=== PATIENT | male | born 1950 ===

== ENCOUNTER 2021-11-01 18:31 | Inpatient (IN) | payer MEDICARE, OTHER ==
[~2021-11-01] VITALS: Ht 182.9 cm; Wt 113.4 kg
[2021-11-01 19:15] LABS: PCO2 Arterial 67.6 mmHg (35-45); PO2 Arterial 122 mmHg (80-100); pH Blood Arterial 7.32 (7.35-7.45)
--- NOTE | 2021-11-01 19:36 | NUR ---
DIRECT ADMIT TO ICU: REPORT RECEIVED FROM [facility] RN WHO STS THAT PT HAS LEFT THEIR FACILITY AT APPROX 1640. REPORT ALSO RECEIVED FROM EMS WHILE IN ROUTE & AGAIN AT BEDSIDE ON ARRIVAL AT APPPROX 1805. ON ARRIVAL, THE PT IS SEDATED W/ A KETAMINE DRIP & HAS RECEIVED ADDITIONAL ROCURONIUM/ VERSED IVPs WHILE IN ROUTE FOR SEDATION/ VENT COMPLIANCE. LS COARSE IN UPPER LOBES, DIM IN BASES. PT PLACED ON VENT W/ SETTINGS: AC/VC 14/420/5/50% W/ O2 SATS > 95%. MONITOR SHOWS SR W/ HR 70s, BP STABLE W/ SBP 100-110s. OGT IN PLACE, ATTACHED TO LIS W/ CLEAR-BROWN OUTPUT NOTED. 16FR LUCIO W/ [address] ON ARRIVAL, NURSING STAFF WILL CHANGE LUCIO & SEND UA TO LAB. SKIN OVERALL FRAGILE, LARGE AREA OF BRUISING/ DISCOLORATION NOTED TO PT's COCCYX IS BLANCHABLE, DARK PURPLE IN COLOR. NURSING STAFF TO TAKE PHOTOS & PLACE PROPHYLACTIC DRESSING TO SITE. SCRATCHES/ ABRASIONS NOTED TO OUTER ASPECT OF PT's LLE. PAPERWORK HAS BEEN SENT FROM [facility] W/ EMS PROVIDERS & FAXED FROM [facility] WHERE PT IS A PERMANENT RESIDENT. ADMISSION TO BE COMPLETED W/ THIS INFORMATION. PT HAS NO LISTED NOK. REPORT GIVEN TO KYM Nichols RN TO ASSUME CARE.
--- NOTE | 2021-11-01 19:48 | NUR ---
ASSUMED CARE REPORT RECEIVED FROM ROLANDO HOPPER. PATIENT LYING IN BED INTUBATED AND SEDATED ON PROPOFOL @ 20MCG/KG/MIN. OPENS EYES OCCASSIONALLY. VENT SETTINGS AC/VC 14/420/5/50% WITH SPO2 99%. ETT 8.0 24 CM @ LIP. PATIENT TOLERATING VENT WELL. OGT TO LOW INTERMITTENT SUCTION WITH YELLOW OUTPUT. LUCIO IN PLACE FROM [facility] DRAINING LIGHT YELLOW CLEAR URINE TO GRAVITY. PATIENT HAS 20G TO LT AC AND 22G TO LT HAND THAT FLUSHES AND PULLS BLOOD, 20 G TO RT FA INF PROPOFOL. UPON ASSUMING CARE, RT ENTERED ROOM WITH ABG RESULTS-SEE LAB RESULTS FOR THAT INFORMATION- AND ADJUSTED VENT SETTINGS TO 14/450/5/40% W/ SPO2 @ 97%. MONITOR SHOWS NSR WITH RATE 72, BP 104/60 MAP 73. BELONGINGS PLACED IN PATIENT BAGS AND IN TOP OPEN CUPBOARD IN ROOM.
[2021-11-01 19:53] LABS: Influenza A, PCR NEGATIVE (NEGATIVE); Influenza B, PCR NEGATIVE (NEGATIVE); Resp Syncytial Virus, PCR NEGATIVE (NEGATIVE); SARS-Cov-2 (COVID-19) PCR, MMC NEGATIVE (NEGATIVE)
[2021-11-01 21:25] LABS: Source, Urine Foley catheter
[2021-11-01 21:31] LABS: Appearance, Urine Clear (Clear); Bilirubin, Urine Neg (Neg); Blood, Urine 3+ (Neg); Color, Urine Yellow (P-Yellow); Glucose Qualitative, Urine 4+ (Neg); Ketones, Urine Neg (Neg); Leukocyte Esterase, Urine Neg (Neg); Nitrite, Urine Neg (Neg); Protein, Urine 4+ (Neg); Urobilinogen, Urine NORM (Normal)
[2021-11-01] MEDS ORDERED: ANORO ELLIPTA1 EACH INH (22:03)
[2021-11-01] MEDS ORDERED: Cymbalta20 MG PO (22:04)
[2021-11-01] MEDS ORDERED: METO100ER PO (22:05)
[2021-11-01 22:08] LABS: Bacteria Few /hpf; Squamous Epithelial Cells Rare /hpf (Few); White Blood Cells, Urine 0-2 /hpf (0-5)
[2021-11-01] MEDS ORDERED: SENN187 PO (22:08)
[2021-11-01] MEDS ORDERED: ASCO500 PO (22:08)
[2021-11-01 22:09] LABS: Hyaline Casts 0-2 /lpf (0-2)
[2021-11-01] MEDS ORDERED: THERA-D2000 UNIT PO (22:09)
[2021-11-01] MEDS ORDERED: FURO80 PO (22:10)
[2021-11-01] MEDS ORDERED: ELIQUIS5 M2 PO (22:10)
[2021-11-01] MEDS ORDERED: DILT60ER PO (22:12)
[2021-11-01] MEDS ORDERED: Acetaminophen650 M1 PO (22:13)
[2021-11-01] MEDS ORDERED: MELA3 PO (22:13)
[2021-11-01] MEDS ORDERED: TRAZ50 PO (22:13)
[2021-11-01] MEDS ORDERED: PRED20 PO (22:15)
[2021-11-01] MEDS ORDERED: NOVOLOG FL100 UNIT/2 SC (22:35)
[2021-11-01] MEDS ORDERED: LEVEMIR100 UNIT/1 SC (22:41)
[2021-11-01] MEDS ORDERED: BISA10S PR (22:45)
[2021-11-01] MEDS ORDERED: MIRALAX17 GM PO (22:45)
[2021-11-01] MEDS ORDERED: COMBIVENT RESPIM4 G1 INH (22:47)
[2021-11-01] MEDS ORDERED: Q-Tussin100 MG/5 M PO (22:54)
[2021-11-01] MEDS ORDERED: Triamcinolone A15 G3 TOP (22:56)
[2021-11-01] MEDS ORDERED: DICLOFENAC SOD100 GM TOP (22:58)
[2021-11-02 03:33] LABS: BASOPHILS ABSOLUTE AUTO 0.01 K/mm3 (0.00-0.23); BASOPHILS PERCENT AUTO 0 % (0-2); EOSINOPHILS PERCENT AUTO 0 % (0-6); Hematocrit 39.9 % (37.0-53.0); Mean Corpuscular HGB 31.3 pg (26.0-34.0); Mean Corpuscular HGB Conc 32.6 g/dL (31.5-36.5); Mean Corpuscular Volume 96 fL (80-100); Mean Platelet Volume 9.5 fL (9.1-12.4); Platelet Count 180 K/mm3 (150-400); RDW Coefficient Variation 12.9 % (11.7-14.2); RDW Standard Deviation 45.1 fL (35.1-46.3); Red Blood Cell Count 4.16 M/mm3 (4.30-5.90); White Blood Cell Count 10.54 K/mm3 (4.00-11.30)
[2021-11-02 03:37] LABS: IMMATURE GRAN ABSOLUTE AUTO 0.03 K/mm3 (0.00-0.10); IMMATURE GRAN PERCENT AUTO 0 % (0-1); LYMPHOCYTES ABSOLUTE AUTO 0.81 K/mm3 (0.84-5.20); LYMPHOCYTES PERCENT AUTO 8 % (21-46); MONOCYTES ABSOLUTE AUTO 0.09 K/mm3 (0.16-1.47); MONOCYTES PERCENT AUTO 1 % (4-13); NEUTROPHILS PERCENT AUTO 91 % (41-73)
[2021-11-02 03:55] LABS: Bun/Creatinine Ratio 12.3 (12.0-20.0); Calcium, Blood 8.5 mg/dL (8.5-10.1); Creatinine, Blood 2.84 mg/dL (0.60-1.20); Magnesium, Blood 2.6 mg/dL (1.6-2.4); Phosphorus, Blood 1.9 mg/dL (2.5-4.9); Potassium, Blood 4.1 mmol/L (3.5-5.5)
--- NOTE | 2021-11-02 07:23 | NUR ---
SHIFT SUMMARY PATIENT REMAINED INTUBATED AND SEDATED T/O SHIFT. PROPOFOL INCREASED TO 40MCG/KG/MIN WITH PATIENT STILL ABLE TO FOLLOW COMMANDS AND AROUSABLE. PATIENT DID NOT TOLERATE TURNS WELL-EXPERIENCED COUGHING FITS WITH SEVERE TREMORS EACH TIME, BUT QUICKLY RECOVERED. LUNG SOUNDS REMAINED FINE AND VENT SETTINGS REMAINED AT 14/420/5/40% WITH SPO2 GREATER THAN 90%. OGT TO LOW INT SUCTION AFTER BEING PLACED ON REGULAR SUCTION FOR APPROXIMATELY 4 HOURS. OGT HAD TOTAL OF 700ML OF OUTPUT. LUCIO PATENT AND DRAINED 325ML YELLOW CLEAR URINE TO GRAVITY. NO BM DURING SHIFT. PICTURES TAKEN OF BUTTOCK DISCOLORATION AND PLACED IN CHART. PHOS WAS LOW THIS AM AT 1.9-NA PHOS 20MM IV X [address] FLOYD. PATIENT REQUIRED HUMULIN COVERAGE OF 10 UNITS, 12 UNITS, AND 12 UNITS. LONG ACTING LANTUS STARTED DURING SHIFT. NO OTHER MAJOR CHANGES DURING SHIFT. REPORT GIVEN TO WARD MARSHALL.
--- NOTE | 2021-11-02 08:00 | NUR ---
ASSUMED CARE: REPORT RECEIVED FROM KYM Nichols RN. ASSUMED CARE OF THIS PT AT APPROX 0700. ON ASSESSMENT, THE PT IS RESTING QUIETLY & SEDATED W/ PROPOFOL AT 40 MCG/KG/MIN. HE AWAKENS EASILY TO VERBAL STIMULUS, IS ABLE TO FOLLOW DIRECTIONS & ANSWER YES/ NO QUESTIONS BY NODDING HEAD. LS ARE COARSE T/O, PT HAVING MOD AMNTS THICK WHITE SPUTUM SUCTIONED THROUGH ETT. VENT SETTINGS: SPONTANEOUS W/ PS 10, PEEP 5 & 40% FIO2 W/ O2 SATS > 95% ON AVG. MONITOR SHOWS ST W/ HR 100s, BP STABLE. OGT IN PLACE TO LIS, OKAY TO GIVE PER TUBE MEDS & CLAMP OGT FOR 30-60 MINS AFTER, PER PROVIDER. LUCIO PATENT/ DRAINING YELLOW URINE. SKINC CONDITION OVERALL FRAGILE W/ LARGE AREA OF PURPLE DISCOLORATION TO COCCYX/ BUTTOCKS THAT IS BLANCHABLE & VARIOUS AREAS OF SCATTERED ABRASION/ REDNESS. Q2H REPOSITIONING TO MAINTAIN SKIN INTEGRITY. WILL CONTINUE TO MONITOR & UPDATE NEEDED.
--- NOTE | 2021-11-02 08:40 | NUR ---
DR STILES: PROVIDER AT BEDSIDE THIS AM TO COLE PT. DISCUSSED PT's CONTINUED ELEVATED CBG READINGS W/ NO ADDITIONAL LONG-ACTING COVERAGE. ORDERS PLACED FOR INSULIN GLARGINE BID W/ FIRST DOSE THIS AM.
--- NOTE | 2021-11-02 10:00 | NUR ---
Nathan FOX & TE / SPONTANEOUS BREATHING TRIAL: PROVIDERS AT BEDSIDE TO EVAL PT THIS AM. THE PT HAS BEEN ON SPONTANEOUS W/ PS 10, PEEP 5 & 40% FIO2 SINCE APPROX 0645 THIS AM. HE HAS TOLERATED THIS WELL W/ ADEQUATE TVs & RR 16-25. DURING THIS TIME HE HAS REMAINED ON 40 MCG/KG/MIN OF PROPOFOL & AWAKENS EASILY TO VERBAL STIMULUS, FOLLOWS DIRECTIONS & NODS HEAD YES/NO TO ANSWER QUESTIONS. DR FOX HAS NO PLANS TO EXTUBATE THIS PT TODAY & STS TO LET HIM REMAIN ON SPONTANEOUS FOR LONG TOLERATED BEFORE RETURNING TO PRIOR VENT SETTINGS. AT APPROX 1000, PT's RR INCREASED TO 25-26 & TVs DECREASED TO < 360. YAHAIRA Nguyễn, RT, HAS PLACED PT BACK TO PRIOR AC/VC SETTINGS: 14/420/5/40% & THE PT IS TOLERATING THIS WELL.
--- NOTE | 2021-11-02 12:31 | NUR ---
TUBE FEEDING: TUBE FEEDS INITIATED AT APPROX 1215 AT GOAL RATE OF 25 ML/HR W/ 30 ML H2O FLUSH Q4H, PER ORDERS.
--- NOTE | 2021-11-02 15:34 | NUR ---
UPDATE: DISCUSSED PT's POOR URINE OUTPUT & CONTINUED COARSE LS W/ PROVIDER. RECONCILLED MEDICATIONS FROM PT's SNF SHOW THAT HE GENERALLY TAKES [address] FOX IS HESITANT TO DIURESE THE PT AT THIS TIME & STS WE WILL CONTINUE TO MONITOR URINE OUTPUT THROUGH THE NIGHT WE HAVE INITIATED TUBE FEEDINGS THIS AFTERNOON & OUTPUT MAY INCREASE R/T THIS.
--- NOTE | 2021-11-02 17:43 | NUR ---
SHIFT SUMMARY: NO ACUTE CHANGES SINCE PRIOR UPDATES. PT REMAINS SEDATED W/ PROPOFOL, PRN FENTANYL GIVEN PER EMAR FOR SEDATION ADJUNCT. LS COARSE T/O W/ SMALL AMNTS OF THICK WHITE SECRETIONS SUCTIONED THROUGH ETT. VENT SETTINGS: AC/VC 14/450/5/40% FIO2 W/ O2 SATS > 95%. MONITOR SHOWS SR-ST W/ HR 80-100s, BP STABLE. OGT IN PLACE W/ TUBE FEEDS INFUSING AT GOAL RATE, LOW RESIDUALS. LUCIO PATENT/ DRAINING SMALL AMNT OF DARK YELLOW URINE. SKIN CONDITION OVERALL FRAGILE, UNCHANGED FROM AM ASSESSMENT. Q2H REPOSITIONING TO MAINTAIN SKIN INTEGRITY. WILL CONTINUE TO MONITOR & REPORT OFF TO ONCOMING RN.
--- NOTE | 2021-11-02 19:00 | NUR ---
ASSUMED CARE ASSUMED CARE OF PATIENT. REMAINS INTUBATED- AC 14, TV 450, PEEP 5, FIO2 40%. RR 19-20. SEDATED WITH PROPOFOL AT 50MCG/KG/MIN. OPENS EYES TO VERBAL STIMULI. FOLLOWS SOME SIMPLE COMMANDS. MOVES ALL EXTREMITIES WEAKLY. BILATERAL SOFT WRIST RESTRAINTS IN PLACE TO PREVENT SELF-EXTUBATION. MONITOR SHOWS SR-ST, RATE 90s-100s. BP STABLE. OG WITH VITAL HIGH PROTEIN INFUSING AT GOAL RATE OF 25CC/HR. LUCIO PATENT AND DRAINING TO GRAVITY- SCANT YELLOW URINE NOTED AT THIS TIME. SEE SHIFT ASSESSMENT FOR FULL ASSESSMENT.
[2021-11-03 03:44] LABS: BASOPHILS ABSOLUTE AUTO 0.01 K/mm3 (0.00-0.23); BASOPHILS PERCENT AUTO 0 % (0-2); EOSINOPHILS PERCENT AUTO 0 % (0-6); Hematocrit 37.4 % (37.0-53.0); Hemoglobin 12.4 g/dL (13.5-17.5); IMMATURE GRAN PERCENT AUTO 1 % (0-1); LYMPHOCYTES ABSOLUTE AUTO 0.69 K/mm3 (0.84-5.20); LYMPHOCYTES PERCENT AUTO 4 % (21-46); MONOCYTES ABSOLUTE AUTO 0.32 K/mm3 (0.16-1.47); MONOCYTES PERCENT AUTO 2 % (4-13); Mean Corpuscular HGB 31.7 pg (26.0-34.0); Mean Corpuscular HGB Conc 33.2 g/dL (31.5-36.5); Mean Corpuscular Volume 96 fL (80-100); Mean Platelet Volume 9.9 fL (9.1-12.4); NEUTROPHILS ABSOLUTE AUTO 15.29 K/mm3 (1.96-9.15); NEUTROPHILS PERCENT AUTO 93 % (41-73); Platelet Count 184 K/mm3 (150-400); RDW Coefficient Variation 12.9 % (11.7-14.2); RDW Standard Deviation 44.9 fL (35.1-46.3); Red Blood Cell Count 3.91 M/mm3 (4.30-5.90); White Blood Cell Count 16.41 K/mm3 (4.00-11.30)
[2021-11-03 04:19] LABS: Albumin, Blood 2.8 g/dL (3.4-5.0); Anion Gap 10 mmol/L (6-16); Blood Urea Nitrogen 62 mg/dL (8-24); Bun/Creatinine Ratio 16.1 (12.0-20.0); CO2, Blood 34 mmol/L (21-32); Calcium, Blood 8.4 mg/dL (8.5-10.1); Chloride, Blood 88 mmol/L (98-108); Creatinine, Blood 3.84 mg/dL (0.60-1.20); Glomerular Filtration Rate 16 (60-); Glucose, Blood 480 mg/dL (70-99); Magnesium, Blood 2.7 mg/dL (1.6-2.4); Phosphorus, Blood 3.9 mg/dL (2.5-4.9); Potassium, Blood 3.9 mmol/L (3.5-5.5); Sodium, Blood 132 mmol/L (136-145)
--- NOTE | 2021-11-03 05:45 | NUR ---
HYPERGLYCEMIA DR. FOX NOTIFIED OF CONTINUED CBGs >400. NEW ORDERS RECEIVED TO CHANGE INSULIN COVERAGE TO Q4H.
--- NOTE | 2021-11-03 06:15 | NUR ---
SHIFT SUMMARY NO ACUTE CHANGES DURING NOC. REMAINS INTUBATED- AC 14, TV 450, PEEP 5, FIO2 NOW 30%. RR 14-20s. ATTEMPTED SBT THIS AM- SEE RT DOCUMENTATION. SEDATED WITH PROPOFOL BETWEEN 15-50MCG/KG/MIN. PT OPENS EYES TO VERBAL STIMULI AND FOLLOWS SIMPLE COMMANDS. NODS HEAD YES/NO APPROPRIATELY. MOVES ALL EXTREMITIES WEAKLY. OCCASIONAL STIFFENING OF ALL EXTREMITIES WITH STIMULATION/AGITATION. MEDICATED WITH FENTANYL 50MCG IV X 2 DOSES FOR DISCOMFORT/SEDATION ADJUNCT. OG WITH VHP AT GOAL RATE OF 25CC/HR. RESIDUALS 20-100CC. LUCIO PATENT AND DRAINING TO GRAVITY- TOTAL OF 400CC THIS SHIFT. CBGs CONSISTENTLY >400. DR. FOX IS AWARE AND PLAN IS TO CHECK CBGs Q4H NOW WITH HIGH SLIDING SCALE REGULAR INSULIN. WILL REPORT TO ONCOMING RN WHEN AVAILABLE.
--- NOTE | 2021-11-03 10:05 | NUR ---
ASSUMED CARE OF PT @0700, REPORT RCV'D FROM ROLANDO DEVRIES. PT INTUBATED AND SEDATED. VENT SETTINGS AC 14/420/5/30%. PROPOFOL @ 50 MCG/KG/MIN. PT OPENS EYES TO VERBAL STIMULI, FOLLOWS COMMANDS TO SQUEEZE HANDS BILATERALLY, MOVES ALL EXTREMETIES. PT PLACED ON PRESSURE SUPPORT THIS AM @0900, PROPOFOL PLACED ON STANDBY. VHP @ 25 ML/HR GOAL. LUCIO PATENT AND DRAINING TO TO GRAVITY. VSS. SEE FULL SHIFT ASSESSMENT.
--- NOTE | 2021-11-03 12:00 | NUR ---
PT EXTUBATED TO BIPAP @1135. BIPAP SETTINGS /, 30%. SATS>90%, PT WHEEZY THROUGHOUT. PT ALERT AND ORIENTED X4, FOLLOWS COMMANDS. VSS. DENIES NEEDS AT THIS TIME.
--- NOTE | 2021-11-03 17:06 | NUR ---
SHIFT SUMMARY PT REMAINS ALERT AND ORIENTED, PLEASANT AND COOPERATIVE WITH CARE. INSPIRATORY/EXPIRATORY WHEEZES T/O, PT STATES NORMAL. SATS>90% ON BIPAP 12/6, 30%, TOLERATES NC 3-4L FOR SHORT PERIODS OF TIME. OCCASIONAL NON-PRODUCTIVE DRY COUGH. BLOOD SUGARS IMPROVING THIS AFTERNOON. PT ABLE TO EAT/DRINK WITHOUT DIFFICULTY. 1200 ML URINARY OUTPUT. VSS T/O SHIFT. WILL REPORT TO ONCOMING NURSE.
--- NOTE | 2021-11-03 19:10 | NUR ---
Assumed care. Report received from roxana MARSHALL. Pt resting in bed at this time, alert and oriented. Bipap removed for pt relief, 3 L/min 02 via NC put on pt. Pt has IV access in R/arm, L/arm x2. Sams catheter in place, draining to gravity. No acute needs at this time, call light within reach. Will continue to monitor.
[2021-11-04 03:34] LABS: BASOPHILS ABSOLUTE AUTO 0.01 K/mm3 (0.00-0.23); BASOPHILS PERCENT AUTO 0 % (0-2); EOSINOPHILS PERCENT AUTO 0 % (0-6); Hematocrit 36.8 % (37.0-53.0); Hemoglobin 12.3 g/dL (13.5-17.5); IMMATURE GRAN ABSOLUTE AUTO 0.04 K/mm3 (0.00-0.10); IMMATURE GRAN PERCENT AUTO 0 % (0-1); LYMPHOCYTES ABSOLUTE AUTO 0.48 K/mm3 (0.84-5.20); LYMPHOCYTES PERCENT AUTO 4 % (21-46); MONOCYTES ABSOLUTE AUTO 0.24 K/mm3 (0.16-1.47); MONOCYTES PERCENT AUTO 2 % (4-13); Mean Corpuscular HGB 31.7 pg (26.0-34.0); Mean Corpuscular HGB Conc 33.4 g/dL (31.5-36.5); Mean Corpuscular Volume 95 fL (80-100); Mean Platelet Volume 9.3 fL (9.1-12.4); NEUTROPHILS PERCENT AUTO 94 % (41-73); Platelet Count 196 K/mm3 (150-400); Red Blood Cell Count 3.88 M/mm3 (4.30-5.90); White Blood Cell Count 12.17 K/mm3 (4.00-11.30)
[2021-11-04 03:55] LABS: Albumin, Blood 2.8 g/dL (3.4-5.0); Anion Gap 6 mmol/L (6-16); Blood Urea Nitrogen 68 mg/dL (8-24); CO2, Blood 37 mmol/L (21-32); Calcium, Blood 8.3 mg/dL (8.5-10.1); Chloride, Blood 94 mmol/L (98-108); Creatinine, Blood 3.09 mg/dL (0.60-1.20); Glomerular Filtration Rate 20 (60-); Glucose, Blood 310 mg/dL (70-99); Magnesium, Blood 2.7 mg/dL (1.6-2.4); Phosphorus, Blood 4.9 mg/dL (2.5-4.9); Sodium, Blood 137 mmol/L (136-145)
--- NOTE | 2021-11-04 06:15 | NUR ---
SHIFT SUMMARY. PT RESTED IN BED THROUGHOUT SHIFT. BIPAP SETTINGS /, 30%. DURING BREAKS FROM BIPAP, PT MAINTAINED SATS >93% WITH 3 L/MIN 02 VIA NC. ORDER OBTAINED FOR MELATONIN DURING SHIFT DUE TO PT C/O OF INABILITY TO FALL ASLEEP. DC'D R/ARM IV DURING SHIFT, L/ARM IV ACCESS X2 REMAIN IN PLACE. 1200 MLS URINE OUT THIS SHIFT. VS STABLE THROUGHOUT SHIFT, WILL CONTINUE TO MONITOR AND REPORT OFF TO DAYSHIFT RN.
--- NOTE | 2021-11-04 08:18 | NUR ---
ASSUMED CARE OF PT, REPORT RCV'D FROM ROLANDO JARVIS. PT ALERT AND ORIENTED, PLEASANT AND COOPERATIVE WITH CARE. SATS 97% ON 3LNC, BIPAP 12/6, 30% NEEDED. LUNG SOUNDS CLEAR/DIM WITH SLIGHT EXPIRATORY WHEEZE, IMPROVED FROM YESTERDAY. OCCASIONAL NON-PRODUCTIVE DRY COUGH. BOWEL TONES POSITIVEX4, LAST BM PRIOR TO ADMISSION, BOWEL CARE IN PLACE. LUCIO PATENT AND DRAINING TO GRAVITY. SEE FULL SHIFT ASSESSMENT.
--- NOTE | 2021-11-04 18:52 | NUR ---
SHIFT SUMMARY NO ACUTE CHANGES THIS SHIFT. PT REMAINS ALERT AND ORIENTED, COOPERATIVE WITH CARE. PT ON 3 LITERS NC T/O MOST OF SHIFT WITH PERIODS OF REST ON THE BIPAP. PT EATING AND DRINKING WELL. WORKED WITH OT/PT. PLAN TO DISCHARGE BACK TO [facility] TOMORROW. [facility] WORKING ON TRANSPORTATION. WILL REPORT TO ONCOMING NURSE.
--- NOTE | 2021-11-04 19:05 | NUR ---
ASSUMED CARE. REPORT RECEIVED FROM WILSON MARSHALL. PT RESTING IN BED ATT. ON 02, 3 L/MIN VIA NC. LUCIO CATHETER IN PLACE, DRAINING TO GRAVITY. VS STABLE, NO ACUTE NEEDS AT THIS TIME. WILL CONTINUE TO MONITOR.
[2021-11-05 03:33] LABS: Albumin, Blood 2.8 g/dL (3.4-5.0); Anion Gap 4 mmol/L (6-16); Blood Urea Nitrogen 68 mg/dL (8-24); CO2, Blood 37 mmol/L (21-32); Chloride, Blood 97 mmol/L (98-108); Creatinine, Blood 2.52 mg/dL (0.60-1.20); Glomerular Filtration Rate 25 (60-); Glucose, Blood 249 mg/dL (70-99); Phosphorus, Blood 4.5 mg/dL (2.5-4.9); Potassium, Blood 4.7 mmol/L (3.5-5.5); Sodium, Blood 138 mmol/L (136-145)
--- NOTE | 2021-11-05 06:48 | NUR ---
SHIFT SUMMARY. PT RESTED IN BED THROUGHOUT SHIFT, ALERT AND ORIENTED. ON 02 VIA NC AT 4 L/MIN. IV ACCESS IN L/ARM X2. LUCIO CATHETER IN PLACE, 2350 MLS CLEAR/YELLOW URINE OUT THIS SHIFT. BG CONTINUE TO IMPROVE, 237 LAST READING. SEE SHIFT ASSESSMENT FOR FUTHER DETAILS. WILL CONTINUE TO MONITOR AND REPORT OFF TO DAYSHIFT RN.
--- NOTE | 2021-11-05 08:59 | NUR ---
ASSUMED CARE OF PT, REPORT RCV'D FROM SIMONA MARSHALL. PT ALERT AND ORIENTED SITTING UP IN BED. SATS 93% ON 3LNC, AUBIBLE WHEEZES HEARD. PT DENIES SHORTNESS OF BREATH, STATES WHEEZING IS NORMAL. PT EATING AND DRINKING WELL. DENIES ANY NEEDS AT THIS TIME. VSS. PLAN TO DISCHARGE BACK TO [facility] TODAY. SEE FULL SHIFT ASSESSMENT.
[2021-11-05] MEDS ORDERED: ALBU2.5V5 INH (10:55)
[2021-11-05] MEDS ORDERED: Q-Tussin100 MG/5 M PO (10:57)
[2021-11-05] MEDS ORDERED: VISBIOME 112.51 EACH PO (11:01)
[2021-11-05] MEDS ORDERED: AMOCLA875 (11:02)
[2021-11-05] MEDS ORDERED: Prednisone10 MG (11:04)
[2021-11-05] MEDS ORDERED: ELIQUIS2.5 MG PO (11:05)
--- NOTE | 2021-11-05 11:38 | NUR ---
REPORT CALLED TO [facility]. PT UPDATED WITH TRANSPORTATION PLANS. AWAITING TRANSPORTATION.
--- NOTE | 2021-11-05 12:08 | NUR ---
PT PLACED ON 3L NC, ATTEMPT TO STAND PIVOT TO WHEELCHAIR. PT SOB OF BREATH WITH SIGNIFICANT WHEEZING D/T LAUGHING. BREATHING TREATMENT ADMINISTERED. PT ABLE TO STAND WITH ASSISTANCE/WALKER AND PIVOT TO WHEELCHAIR.
== END 2021-11-05 12:07 | DRG 208 ==
LOC: ICUE 18:31
PROVIDERS: Internal Medicine Critical Care Medicine; ADMIT Family Medicine
PROC: 5A1945Z Respiratory Ventilation, 24-96 Consecutive Hours (ICD-10-PCS; principal; 2021-11-01)
DX: J18.9 Pneumonia, unspecified organism (principal); J96.01 Acute respiratory failure with hypoxia; J96.02 Acute respiratory failure with hypercapnia; J44.1 Chronic obstructive pulmonary disease with (acute) exacerbation; N18.4 Chronic kidney disease, stage 4 (severe); I13.0 Hypertensive heart and chronic kidney disease with heart failure and stage 1 through stage 4 chronic kidney disease, or unspecified chronic kidney disease; E87.1 Hypo-osmolality and hyponatremia; N17.9 Acute kidney failure, unspecified; I48.0 Paroxysmal atrial fibrillation; Z78.1 Physical restraint status; I50.9 Heart failure, unspecified; D63.1 Anemia in chronic kidney disease; D72.828 Other elevated white blood cell count; T38.0X5A Adverse effect of glucocorticoids and synthetic analogues, initial encounter; K21.9 Gastro-esophageal reflux disease without esophagitis; E11.22 Type 2 diabetes mellitus with diabetic chronic kidney disease; F41.9 Anxiety disorder, unspecified; E11.65 Type 2 diabetes mellitus with hyperglycemia; E78.5 Hyperlipidemia, unspecified; Z87.891 Personal history of nicotine dependence; Z86.73 Personal history of transient ischemic attack (TIA), and cerebral infarction without residual deficits; Z79.4 Long term (current) use of insulin; Z79.01 Long term (current) use of anticoagulants; Z79.899 Other long term (current) drug therapy
CPT/HCPCS: 0241U; 36415; 36600; 71045; 80048; 80069; 81001; 82803; 82947; 83036; 83735; 83880; 84100; 84145; 84484; 85025; 87040; 87070; 87205; 94002; 94003; 94640; 94660; 94760; 97166; 97530; A9270; C9113; J0456; J0696; J1815; J2704; J2930; J3010; J7050; J7060